=== PATIENT | male | born 1940 | race Caucasian/White ===

== ENCOUNTER 2023-03-24 13:17 | Emergency (ER) | payer MEDICARE, SELFPAY ==
[2023-03-24] VITALS (7 sets, daily range): BP systolic 160–183; BP diastolic 77–92; PULSE 61–81; RESP 18–22; TEMP 36.4; O2SAT 96–98
--- NOTE | ~2023-03-24 | CT_ITS ---
EXAMINATION: CT brain wo con DATE: 03/24/2023 13:49 INDICATION: Status post fall. Altered mental status. TECHNIQUE: Computed tomography (CT) of the head was performed without intravenous contrast. The dose- length product was 605.33 mGy-cm. Automated exposure control and iterative reconstruction technique w ere employed COMPARISON: None FINDINGS: Generalized atrophy. There are scattered mild periventricular and subcortical white matter changes, most likely related to small vessel ischemic disease (microangiopathy). No ventriculomegaly or midline shift. Basilar cisterns are patent. There is right maxillary sinusitis. No acute infarctio n, hemorrhage, mass or mass effect. Mastoids are pneumatized. No depressed skull fractures. IMPRESSION: 1. No acute intracranial abnormality. 2: Right maxillary sinusitis. 3: Chronic age-related findings. Reviewed, dictated and finalized at location B.
--- NOTE | ~2023-03-24 | CT_ITS ---
EXAMINATION: CT facial & cervical spine wo DATE: 03/24/2023 13:49 INDICATION: Status post fall. Facial and neck pain. TECHNIQUE: Computed tomography (CT) of the maxillofacial region and cervical spine was performed with out intravenous contrast. The dose-length product was 506.29 mGy-cm. Automated exposure control and i terative reconstruction technique were employed. COMPARISON: None FINDINGS: MAXILLOFACIAL CT: There is irregularity to the inferior wall of the right orbit, consistent with fracture. There is mod erate mucosal thickening of the right maxillary sinus. Rightward nasal septal deviation. CERVICAL SPINE CT: There is degenerative disc disease at C5-6 and C6-7 with disc narrowing and endplate degenerative laya nge. There is degenerative anterolisthesis at C4-5, C7-T1, T1-2. Moderate multilevel uncinate and fac et hypertrophy. Odontoid process is normal. No paraspinal soft tissue abnormality. IMPRESSION: 1. Right orbital floor fracture. 2: Severe cervical spondylosis. Reviewed, dictated and finalized at location B.
--- NOTE | 2023-03-24 13:34 | ED.FALL ---
HPI - Fall General Chief Complaint: Fall Stated Complaint: altered after fall Time Seen by Provider: 03/24/23 13:29 History of Present Illness HPI Narrative: Patient was holding a sandwich and walking on his porch when he missed a step and fell, landing on the bricks onto his head/face, he does have a sizable black eye to his right eye, he is denying any complaints right now. Per , he has had occasional episodes of confusion due to medications he is taking for prostate cancer, which is constantly better since his dosage was halved. Not on blood thinners, denies loss consciousness, no nausea or vomiting Related Data Allergies Allergy/AdvReac Type Severity Reaction Status Date / Time No Known Allergies Allergy Verified 03/24/23 13:30 Review of Systems Review of Systems: CONST: No fever. HEENT: Head trauma, no blurry vision C/V: No chest pain RESP: No cough GI: No abdominal pain : No dysuria. M/S: No joint pain. SKIN: No rash. NEURO: [No headache or focal numbness or weakness] PSYCH: [No depression] Exam Narrative: EXAMINATION OF ORGAN SYSTEMS/BODY AREAS: Constitutional: Vital signs per nursing GENERAL:[No acute distress, non-toxic appearing.] HEAD: Swelling R face EYES: EOMI, visual acuity intact, PERRL, large ecchymosis below R eye ENT: Hearing grossly intact, clear speech LUNGS: Nonlabored breathing. HEART: [Regular rate and rhythm] ABD: [Soft], [nontender to palpation] EXT: Normal range of motion, no tenderness to palpation of any joint SKIN: [No rashes or lesions.] NEURO: [Alert and oriented x 3. No gross focal sensory or strength deficits.] PSYCH: Normal affect Course Vital Signs Vital signs: Vital Signs Temperature 97.6 F 03/24/23 13:23 Pulse Rate 81 03/24/23 13:23 Respiratory Rate 20 03/24/23 13:23 Blood Pressure 175/92 H 03/24/23 13:23 Pulse Oximetry 97 03/24/23 13:23 Oxygen Delivery Room Air 03/24/23 13:23 Temperature 97.6 F 03/24/23 13:23 Pulse Rate 61 03/24/23 15:38 Respiratory Rate 18 03/24/23 15:38 Blood Pressure 160/82 H 09/27/23 15:38 Pulse Oximetry 98 03/24/23 15:38 Oxygen Delivery Room Air 03/24/23 13:23 MDM - Fall MDM Narrative Medical decision making narrative: Patient presents after mechanical fall with head trauma, no blurry vision or double vision, does have a black eye right eye, no complaints otherwise, was ambulating without issues. On exam he is well-appearing, in no distress, with ecchymosis right eye, extraocular movements intact and painless, PERRL, visual acuity R eye intact, no signs of entrapment. CT head, C-spine, face obtained, showing right orbital floor fracture. We did attempt to reach his microphone operator Dr. Georgi Johnson however unable to reach him after almost an hour, therefore did then call [facility], discussed findings with Dr. Tavares who recommended nasal precautions, prophylactic antibiotics, and follow-up in the next 2 days. Follow-up information provided and discharge instructions given with return precautions, patient and family agreeable to this. Discharge Plan Discharge Clinical Impression: Closed fracture of right orbital floor Patient Disposition: Home, Self-Care Condition: Stable Instructions: Antibiotic Form, Facial Fracture (ED) Additional Instructions: Don't blow your nose for 2 weeks; follow up with an eye doctor in 2 days. If you can't get into your own eye doctor, you can go to the eye clinic at [facility] for a dilated eye exam. You can always come back to the ER if you feel wrose. Wed 10am at 10, [address] [facility], . Prescriptions: New cephalexin 500 mg capsule 500 mg PO BID 5 Days Qty: 10 0RF Follow-up/Referrals: PHYSICIAN NOT ON STAFF,NONSTAFF [Primary Care Provider] -
== END 2023-03-24 15:50 | disposition home or self-care (01) ==
PROVIDERS: Emergency Provider Emergency Medicine
DX: S02.31XA Fracture of orbital floor, right side, initial encounter for closed fracture (principal); M47.812 Spondylosis without myelopathy or radiculopathy, cervical region; J32.0 Chronic maxillary sinusitis; W10.9XXA Fall (on) (from) unspecified stairs and steps, initial encounter
CPT/HCPCS: 70450; 70486; 72125; 99284

== ENCOUNTER 2023-09-13 07:12 | Outpatient (CLI) | payer MEDICARE, SELFPAY ==
--- NOTE | ~2023-09-13 | NM_ITS ---
EXAMINATION: NM bone scan whole body DATE: 09/13/2023 10:47 INDICATION: Malignant neoplasm of the prostate TECHNIQUE: 25.7 mCi Tc-99m HDP was administered intravenously. Delayed whole-body scintigrams were o btained. COMPARISON: CT abdomen and pelvis dated 09/13/2023 FINDINGS: Small foci of increased uptake at the bilateral anterolateral sixth ribs with corresponding rib fract ures on CT. There is asymmetric joint centered uptake at the right sternoclavicular joint, medial com partment of the left knee, the base of the right thumb and at one of the central metacarpal phalangea l joints at the left hand. Additional symmetric likely degenerative uptake at the bilateral acromiocl avicular joints. No bone lesions suspicious for facet disease. Specifically no uptake is seen in the region of the bone lesions at the anterior right third rib, posterior left eighth rib and at the L1 v ertebral body which were evident on the prior PSMA PET study. IMPRESSION: 1. No bone lesions suspicious for metastatic disease. Specifically no uptake associated with the prev ious noted PSMA avid bone lesions which may be due to interval treatment or the lower sensitivity of a standard bone scan relative to PSMA PET. Reviewed, dictated and finalized at location A. IMPRESSION: 1. No bone lesions suspicious for metastatic disease. Specifically no uptake as sociated with the previous noted PSMA avid bone lesions which may be due to int erval treatment or the lower sensitivity of a standard bone scan relative to PS MA PET.
--- NOTE | ~2023-09-13 | CT_ITS ---
EXAMINATION: CT abdomen pelvis w con DATE: 09/13/2023 07:53 INDICATION: Malignant neoplasm of prostate TECHNIQUE: Computed tomography (CT) of the abdomen and pelvis was performed with 100 CC Omnipaque 350 intravenous contrast. Automated exposure control and iterative reconstruction technique were employe d. Exam dose: 577.89 mGy-cm total exam DLP. COMPARISON: None. FINDINGS: The lung bases are clear of infiltrate or consolidation. Normal heart size. No pericardial or pleural effusion. There is aortic valvular calcification. Coronary artery calcifications. Diffuse hepatic steatosis. No hepatic space-occupying mass lesion is evident. The gallbladder appears normal. No bile duct or pancreatic duct dilatation. No pancreatic mass lesion or calcification. Mult iple calcified splenic granulomas. Normal morphology of the adrenal glands. Up to 8 cm exophytic right renal cyst is noted anterolaterally. The kidneys are otherwise unremarkabl e. No urinary tract calculus or hydroureteronephrosis. The urinary bladder is unremarkable. Surgical clips in the prostate bed suggesting prostatectomy. There is atherosclerotic calcification of the abdominal aorta and iliac and femoral arteries but no a neurysm or dissection. No intraperitoneal or retroperitoneal or pelvic mass lesion or adenopathy or ascites. Diverticulosis of the sigmoid colon; no CT evidence of diverticulitis. No bowel obstruction, bowel wa ll thickening, pneumatosis or intraperitoneal free air. Normal appendix. Very small fat-containing umbilical hernia No suspicious osteolytic or osteoblastic lesions are noted. Prominent degenerative change at the lumbar apophyseal joints with associated grade 1 anterolisthesis at L4-5. Moderately severe degenerative disc disease at L3-4. 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 IMPRESSION: Status post prostatectomy; no metastatic disease or suspicious osteosclerotic lesions ar e evident Aortic valvular calcification Coronary calcifications Hepatic steatosis 8 cm right renal cyst Diverticulosis of the sigmoid colon Normal appendix Reviewed, dictated and finalized at [facility]. Reviewed, dictated and finalized at location B. IMPRESSION: Status post prostatectomy; no metastatic disease or suspicious ost eosclerotic lesions are evident Aortic valvular calcification Coronary calcifications Hepatic steatosis 8 cm right renal cyst Diverticulosis of the sigmoid colon Normal appendix
[2023-09-13 07:52] LABS: Estimated Glomerular Filt Rate > 60
== END 2023-09-13 07:13 | disposition home or self-care (01) ==
PROVIDERS: Visit Provider Urology
DX: C61 Malignant neoplasm of prostate (principal); I70.0 Atherosclerosis of aorta; K76.0 Fatty (change of) liver, not elsewhere classified; N28.1 Cyst of kidney, acquired; K57.30 Diverticulosis of large intestine without perforation or abscess without bleeding
CPT/HCPCS: 36415; 74177; 78306; A9503; Q9967